=== PATIENT | male | born 1995 | race Caucasian/White ===

== ENCOUNTER 2018-04-08 10:26 | Emergency (ER) | payer OTHER ==
[~2018-04-08] VITALS: Ht 177.8 cm; Wt 113.6 kg
[~2018-04-08 10:26] MED LIST: CEPHALEXIN500 M1 PO
[2018-04-08 10:29] VITALS: BP 143/68; TEMP 98.8
[2018-04-08 11:57] VITALS: PULSE 73
== END 2018-04-08 11:56 | disposition home or self-care (01) ==
LOC: COL.ER 10:26
DX: S52.202A Unspecified fracture of shaft of left ulna, initial encounter for closed fracture (principal); V89.9XXA Person injured in unspecified vehicle accident, initial encounter; W22.8XXA Striking against or struck by other objects, initial encounter; Y92.89 Other specified places as the place of occurrence of the external cause
CPT/HCPCS: Q4050